=== PATIENT | female | born 1965 | race Caucasian/White ===

== ENCOUNTER 2018-06-27 08:32 | Day surgery (SDC) | payer OTHER ==
[~2018-06-27] VITALS: Ht 160 cm; Wt 84.1 kg
[~2018-06-27 08:32] MED LIST: ASPI81 PO; DSS100 PO; GLIP10 PO; METF-960 PO
[2018-06-27] MEDS ORDERED: METOPROLOL TARTRATE 50 MG TABLET PO PRN (09:00)
[2018-06-27] MEDS ORDERED: 0.9% SODIUM CHLORIDE 10 ML SYRINGE IVP PRN (09:00)
[2018-06-27] MEDS ORDERED: ACET-2744 PO (09:31)
[2018-06-27] MEDS ORDERED: ATOR40TA28 PO (09:31)
[2018-06-27] MEDS ORDERED: NAPR-58 PO (09:31)
[2018-06-27] MEDS ORDERED: VENL-66 PO (09:31)
[2018-06-27] MEDS ORDERED: ZOLP10TA7 PO (09:31)
[2018-06-27] MEDS ORDERED: BACL10TA PO (09:31)
[2018-06-27 09:32] LABS: ANION GAP 8 mmol/L (8-16); CALCIUM, TOTAL 9.3 mg/dL (8.8-10.5); CARBON DIOXIDE 30 mmol/L (22-29); CHLORIDE 101 mmol/L (98-107); CREATININE 0.53 mg/dL (0.60-1.30); GLOMERULAR FILTR. RATE CALC > 60 mL/min (>60); GLUCOSE,RANDOM 269 mg/dL (70-110); POTASSIUM 4.2 mmol/L (3.5-5.1); SODIUM SERUM 139 mmol/L (136-145); UREA NITROGEN, BLOOD 13 mg/dL (7-18)
[2018-06-27] MEDS ORDERED: BECL10.62 IH (09:33)
[2018-06-27] MEDS ORDERED: DICL2100G TP (09:33)
[2018-06-27] MEDS ORDERED: ASPE90C TP (09:33)
[2018-06-27] MEDS ORDERED: CARV3 PO (09:38)
[2018-06-27] MEDS ORDERED: SITA100 PO (09:38)
[2018-06-27] MEDS ORDERED: ALBU8HFA IH (09:38)
[2018-06-27] MEDS ORDERED: ADRENACLICK IM (09:38)
[2018-06-27] MEDS ORDERED: RANI150T7 PO (09:38)
[2018-06-27] MEDS ORDERED: TICA90TA PO (09:38)
[2018-06-27] MEDS ORDERED: PSYL0.5217 PO (09:38)
[2018-06-27] MEDS ORDERED: GABA-531 PO (09:39)
[2018-06-27] MEDS ORDERED: METOPROLOL TARTRATE 50 MG TABLET ONE (10:24)
[2018-06-27] MEDS ORDERED: METOPROLOL TARTRATE 5 MG/5 ML VIAL ONE (11:35)
[2018-06-27] MEDS ORDERED: NITROGLYCERIN 400 MCG/SUBLINGUAL SPRAY 4.9 GM BOTTLE SL ONE ×2 (11:35→12:04)
[2018-06-27] MEDS ORDERED: IOVERSOL 350 MG/ML 150 ML VIAL ONE (11:43)
[2018-06-27] MEDS ORDERED: SODIUM CHLORIDE 0.9% 100 ML ONE (11:43)
[2018-06-27] MEDS ORDERED: METOPROLOL TARTRATE 5 MG/5 ML VIAL IVP ONE (11:52)
== END 2018-06-27 13:00 | disposition home or self-care (01) ==
LOC: SURGERY 08:32 → EDSTATUS 10:30 → SURGERY 13:00
PROVIDERS: ATTEND Internal Medicine Cardiovascular Disease
DX: I25.10 Atherosclerotic heart disease of native coronary artery without angina pectoris (principal); M47.814 Spondylosis without myelopathy or radiculopathy, thoracic region; K44.9 Diaphragmatic hernia without obstruction or gangrene; E11.9 Type 2 diabetes mellitus without complications; I50.9 Heart failure, unspecified; I08.1 Rheumatic disorders of both mitral and tricuspid valves; M19.011 Primary osteoarthritis, right shoulder; M19.012 Primary osteoarthritis, left shoulder; E78.00 Pure hypercholesterolemia, unspecified; Z86.74 Personal history of sudden cardiac arrest; Z95.5 Presence of coronary angioplasty implant and graft; Z79.82 Long term (current) use of aspirin; Z79.891 Long term (current) use of opiate analgesic; Z79.84 Long term (current) use of oral hypoglycemic drugs; Z79.1 Long term (current) use of non-steroidal anti-inflammatories (NSAID); Z88.0 Allergy status to penicillin; Z90.89 Acquired absence of other organs; Z87.09 Personal history of other diseases of the respiratory system; Z88.5 Allergy status to narcotic agent; Z91.018 Allergy to other foods; Z88.8 Allergy status to other drugs, medicaments and biological substances; Z79.899 Other long term (current) drug therapy; Z98.890 Other specified postprocedural states
CPT/HCPCS: 36415; 75574; 80048; J3490; J7050; Q9967; 93005